=== PATIENT | female | born 1950 | race Hispanic/Latino ===

== ENCOUNTER 2017-12-29 12:26 | Outpatient (CLI) | payer MEDICARE ==
--- NOTE | 2017-12-30 10:46 | XRay Report ---
Lumbar spine series: Hip pain. There is a grade 1/2 anterior L4 subluxation. There is no spondylolyses. The vertebral height is well maintained at all levels. The interspace at L4-5 may be minimally narrowed. Bilateral degenerative joint narrowing and a proliferative bone identified at L4-5 and L5-S1 apophyseal joints. The bones appear generally decreased in overall mineralization. Impressions: L4 subluxation with degenerative disc and apophyseal changes as described. Bilateral hips: Bilateral hip pain. AP and frog lateral views are obtained. Both hips are well seated and good preservation of the joint spaces. The bones are well-mineralized. The articular surfaces are smooth. The SI joints appear grossly normal. Impression: Unremarkable exam.
== END 2017-12-29 12:27 | disposition home or self-care (01) ==
LOC: SPVIMAG 12:26
PROVIDERS: ATTEND Internal Medicine
DX: S33.140A Subluxation of L4/L5 lumbar vertebra, initial encounter (principal); M47.896 Other spondylosis, lumbar region; M25.551 Pain in right hip; M25.552 Pain in left hip; X58.XXXA Exposure to other specified factors, initial encounter; Y93.89 Activity, other specified; Y92.89 Other specified places as the place of occurrence of the external cause; Y99.8 Other external cause status
CPT/HCPCS: 72050; 72100; 72110; 72114; 73521